=== PATIENT | female | born 1990 | race Caucasian/White ===

== ENCOUNTER 2023-02-18 08:48 | Outpatient (CLI) | payer OTHER | END 2023-02-18 09:06 | disposition home or self-care (01) | LOC: SONOGRAMA 08:48 | PROVIDERS: ATTEND Specialist | DX: D17.1 Benign lipomatous neoplasm of skin and subcutaneous tissue of trunk (principal) ==

== ENCOUNTER 2023-03-26 07:13 | Day surgery (SDC) | payer OTHER | END 2023-03-26 15:00 | disposition home or self-care (01) | LOC: CIR.AMB 07:13 | PROVIDERS: ATTEND Specialist | DX: D17.1 Benign lipomatous neoplasm of skin and subcutaneous tissue of trunk (principal); Z20.822 Contact with and (suspected) exposure to COVID-19 ==